=== PATIENT | female | born 1985 | race Hispanic/Latino ===

== ENCOUNTER 2017-08-24 06:40 | Emergency (ER) | payer BC ==
[~2017-08-24] VITALS: Ht 157.5 cm; Wt 76.2 kg
[~2017-08-24 06:40] MED LIST: DOC-Q-LACE100 MG PO; IBUPROFEN600 MG PO; TYLENOL WITH C1 EACH PO
--- OUTSIDE RECORDS SUMMARY | 2017-08-24 06:42 | XMS REPORT | Clinical Summary ---
Author Author [facility] Address Unknown Phone Unavailable Care Team Providers Care Fashion Coordinator Name Role Phone Hortencia Toledo MD PCP Allergies Active Allergy Reactions Severity Noted Date Comments Sulfa (Sulfonamide Itching 11/10/2016 Antibiotics) Current Medications No known medications Active Problems No known active problems Encounters Date Type Specialty Care Team Description 11/22/2016 Telephone Internal Medicine Vandana Meyers MA 11/22/2016 Orders Only Internal Medicine Shelly Toledo MD 11/21/2016 Telephone Internal Medicine Vandana Meyers MA 11/17/2016 Telephone Internal Medicine Shelly Toledo MD 11/10/2016 Office Visit Internal Medicine Shelly Toledo MD Other fatigue (Primary Dx); Weight gain; Screening for hyperlipidemia after 08/23/2016 Immunizations Name Dates Previously Given Next Due Influenza Trivalent 03/12/2016, 03/27/2014 Family History Medical History Relation Name Comments Hyperlipidemia Father Hypertension Father Hypertension Mother Hypothyroidism Mother Relation Name Status Comments Father Alive Mother Alive Social History Tobacco Use Types Packs/Day Years Used Date Never Smoker Smokeless Tobacco: Never Used Alcohol Use Drinks/Week oz/Week Comments No Sex Assigned at Date Recorded Not on file Last Filed Vital Signs Vital Sign Reading Time Taken Blood Pressure 114/76 11/10/2016 1:49 PM CDT Pulse 65 11/10/2016 1:49 PM CDT Temperature 36.8 C (98.2 F) 11/10/2016 1:49 PM CDT Respiratory Rate - - Oxygen Saturation 97% 11/10/2016 1:49 PM CDT Inhaled Oxygen - - Concentration Weight 74.9 kg (165 lb 3.2 oz) 11/10/2016 1:49 PM CDT Height 157.5 cm (5' 2") 11/10/2016 1:49 PM CDT Body Mass Index 30.22 11/10/2016 1:49 PM CDT Plan of Treatment Date Type Specialty Care Team Description 08/30/2017 Office Visit Obstetrics [place] [address] [address] [address] [place] [address] Health Maintenance Due Date Last Done Comments PAP SMEAR 2005 INFLUENZA VACCINE 12/12/2017 03/12/2016, 03/27/2014 Results * CBC with platelet and differential (11/10/2016 2:20 PM) Component Value Ref Range WBC 5.4 3.8 - 10.8 Thousand/uL RBC 4.67 3.80 - 5.10 Million/uL HGB 13.9 11.7 - 15.5 g/dL HCT 42.0 35.0 - 45.0 % MCV 89.9 80.0 - 100.0 fL MCH 29.8 27.0 - 33.0 pg MCHC 33.1 32.0 - 36.0 g/dL RDW 13.1 11.0 - 15.0 % Platelet count 314 140 - 400 Thousand/uL MPV 7.9 7.5 - 12.5 fL Neutrophils, absolute 3,386 1,500 - 7,800 cells/uL Lymphocytes, absolute 1,566 850 - 3,900 cells/uL Monocytes, absolute 313 200 - 950 cells/uL Eosinophils, absolute 113 15 - 500 cells/uL Basophils, absolute 22 0 - 200 cells/uL Neutrophils 62.7 % Lymphocytes 29.0 % Monocytes 5.8 % Eosinophils 2.1 % Basophils + RC 0.4 % Specimen Performing Laboratory [facility] Narrative FASTING:YES * Thyroid stimulating hormone (11/10/2016 2:20 PM) Component Value Ref Range TSH 1.66 mIU/L Comment: Reference Range > or=20 Years 0.40-4.50 Ranges First trimester 0.26-2.66 Second trimester 0.55-2.73 Third trimester 0.43-2.91 Specimen Performing Laboratory [facility] Narrative FASTING:YES * Vitamin B12 level (11/10/2016 2:20 PM) Component Value Ref Range Vitamin B12 871 200 - 1,100 pg/mL Specimen Performing Laboratory [facility] Narrative FASTING:YES * Lipid panel (11/10/2016 2:20 PM) Component Value Ref Range Cholesterol, total 223 (H) 125 - 200 mg/dL HDL cholesterol 41 (L) > OR=46 mg/dL Triglycerides 144 <150 mg/dL LDL cholesterol 153 (H) <130 mg/dL (calc) calculated Comment: Desirable range <100 mg/dL for patients with CHD or diabetes and <70 mg/dL for diabetic patients with known heart disease. Cholesterol/HDL ratio 5.4 (H) < OR=5.0 (calc) Non-HDL cholesterol 182 (H) mg/dL (calc) Comment: Target for non-HDL cholesterol is 30 mg/dL higher than LDL cholesterol target. Specimen Performing Laboratory [facility] Narrative FASTING:YES * Comprehensive metabolic panel (11/10/2016 2:20 PM) Component Value Ref Range Glucose 81 65 - 99 mg/dL Comment: Fasting reference interval BUN, whole blood 13 7 - 25 mg/dL Creatinine 0.75 0.50 - 1.10 mg/dL EGFR Non-Afr. Belizean 105 > OR=60 mL/min/1.73m2 EGFR 122 > OR=60 mL/min/1.73m2 BUN/creatinine ratio NOT APPLICABLE 6 - 22 (calc) Sodium 141 135 - 146 mmol/L Potassium 4.2 3.5 - 5.3 mmol/L Chloride 104 98 - 110 mmol/L CO2 28 20 - 31 mmol/L Calcium 9.1 8.6 - 10.2 mg/dL Protein 7.4 6.1 - 8.1 g/dL Albumin, S 4.2 3.6 - 5.1 g/dL Globulin, total 3.2 1.9 - 3.7 g/dL (calc) Albumin/globulin ratio 1.3 1.0 - 2.5 (calc) Total bilirubin 0.4 0.2 - 1.2 mg/dL Alkaline phosphatase 85 33 - 115 U/L AST 18 10 - 30 U/L ALT 19 6 - 29 U/L Specimen Performing Laboratory [facility] Narrative FASTING:YES after 08/23/2016 Insurance Payer Benefit Subscriber ID Type Phone Address Plan / Group BCBS BCBS xxxxxxxxxxxx PPO CHOICE PPO/LINDA DU PPO Work: [id number] [facility] [place] [id number] Home:
[2017-08-24] MEDS ORDERED: ONDANSETRON HCL 4 MG ORAL DISINTEGRATING TAB PO ONE (07:30)
[2017-08-24] MEDS ORDERED: SODIUM CHLORIDE 0.9% 1000ML 1,000 ML IV STA (07:45)
[2017-08-24 08:08] VITALS: BP 106/63
[2017-08-24] MEDS ORDERED: ZOFRAN ODT4 MG PO (08:20)
== END 2017-08-24 08:32 | disposition home or self-care (01) ==
LOC: FSED 06:40
DX: R50.9 Fever, unspecified (principal); R11.2 Nausea with vomiting, unspecified; R19.7 Diarrhea, unspecified; R10.84 Generalized abdominal pain; K52.9 Noninfective gastroenteritis and colitis, unspecified
CPT/HCPCS: 80053; 81003; 85025; 99283; J7030

== ENCOUNTER 2018-08-14 12:36 | Emergency (ER) | payer BC ==
[~2018-08-14] VITALS: Ht 157.5 cm; Wt 68.5 kg
[~2018-08-14 12:36] MED LIST changes: +ZOFRAN ODT4 MG PO
--- OUTSIDE RECORDS SUMMARY | 2018-08-14 12:39 | XMS REPORT | Clinical Summary ---
Author Author [facility] Address Unknown Phone Unavailable Care Team Providers Care Occupational Therapy Instructor Name Role Phone Shelly Toledo MD PCP Allergies Comments Active Allergy Reactions Severity Noted Date Sulfa (Sulfonamide Itching 11/10/2016 Antibiotics) Medications End Date Status Medication Sig Dispensed Refills Start Date 08/30/2017 Discontinued ondansetron (ZOFRAN) 4 MG 0 tablet 8 Active Problems Problem Noted Date Hammer toe of right foot 03/27/2018 Fracture of proximal phalanx of toe of right foot 03/27/2018 Resolved Problems Problem Noted Date Resolved Date Backache 08/30/2017 08/30/2017 Biliary colic 08/30/2017 08/30/2017 Cholecystitis 08/30/2017 08/30/2017 Disorder of upper respiratory system 08/30/2017 08/30/2017 Eruption due to drug 08/30/2017 08/30/2017 Gallstone 08/30/2017 08/30/2017 Pruritus 08/30/2017 08/30/2017 Encounters Care Team Description Date Type Specialty Merly Lebron MD 03/27/2018 Anesthesia Event Kym Archer DPM ARTHROPLASTY RIGHT 5TH TOE, HAMMERTOE REPAIR 5TH TOE 03/27/2018 Surgery Kym Archer DPM 03/27/2018 Hospital Encounter Vandana Meyers MA 03/26/2018 Telephone Internal Medicine Shelly Toledo MD Pain of toe of right foot; Pre-operative clearance; Mixed hyperlipidemia 03/19/2018 Office Visit Internal Medicine Shavonne Medina MA 09/21/2017 Telephone Obstetrics and Gynecology Vanna Rueda MD Coital urinary incontinence (Primary Dx); Urge incontinence 08/30/2017 Office Visit Obstetrics and Gynecology Shelly Toledo MD Pain of toe of right foot (Primary Dx) 08/24/2017 Office Visit Internal Medicine Shelly Toledo MD Pain of toe of right foot 08/24/2017 Hospital Radiology Encounter after 08/13/2017 Immunizations Name Dates Previously Given Next Due Influenza Trivalent 03/12/2016, 03/27/2014 Family History Medical History Relation Name Comments Hyperlipidemia Father Kai Dinh Hypertension Father Kai Dinh COPD Maternal Rajesh Grandfather Diabetes Maternal Rajesh Grandfather COPD Maternal Ana Grandmother Diabetes Maternal Ana Grandmother Hearing loss Maternal Ana Grandmother Hypertension Mother Gallo Dinh Hypothyroidism Mother Gallo Dinh Stroke Paternal Ba Grandfather Asthma Sister Monisha Dinh Relation Name Status Comments Father Kai Dinh Alive Maternal Grandfather Rajesh Maternal Grandmother Ana Mother Gallo Alive Fabrizio Paternal Grandfather Ba Sister Monisha Dinh Social History Date Tobacco Use Types Packs/Day Years Used Never Smoker Smokeless Tobacco: Never Used Alcohol Use Drinks/Week oz/Week Comments Yes socially Sex Assigned at Date Recorded Not on file Industry Job Start Date Occupation Not on file Not on file Not on file Travel End Travel History Travel Start No recent travel history available. Last Filed Vital Signs Time Taken Vital Sign Reading 03/27/2018 3:10 PM GROUP SALES COORDINATOR Blood Pressure 103/64 03/27/2018 3:10 PM GROUP SALES COORDINATOR Pulse 72 03/27/2018 2:20 PM GROUP SALES COORDINATOR Temperature 36.4 C (97.6 F) 03/27/2018 3:10 PM GROUP SALES COORDINATOR Respiratory Rate 18 03/27/2018 3:10 PM GROUP SALES COORDINATOR Oxygen Saturation 99% - Inhaled Oxygen - Concentration 03/27/2018 10:53 AM GROUP SALES COORDINATOR Weight 68.7 kg (151 lb 6.4 oz) 03/27/2018 10:53 AM GROUP SALES COORDINATOR Height 157.5 cm (5' 2") 03/27/2018 10:53 AM GROUP SALES COORDINATOR Body Mass Index 27.69 Plan of Treatment Health Maintenance Due Date Last Done Comments CERVICAL CANCER SCREENING 03/14/2018 03/14/2015 INFLUENZA VACCINE 12/12/2018 03/12/2016, 03/27/2014 Procedures Comments Procedure Name Priority Date/Time Associated Diagnosis XR TOE 2+ VW RIGHT Routine 03/27/2018 2:10 PM GROUP SALES COORDINATOR OR FL < 1 HOUR Routine 03/27/2018 2:10 PM GROUP SALES COORDINATOR LA AN ELECTIVE Routine 03/27/2018 SUPRAGLOTTIC AIRWAY 1:53 PM GROUP SALES COORDINATOR Procedure Note - Stevie Hodges MD - 03/27/2018 1:53 PM GROUP SALES COORDINATOR ANESTHESIA INTUBATION Date/Time: 03/27/2018 1:40 PM Performed by: Stevie Hodges MD Authorized by: Stevie Hodges MD Location: OR Urgency: Elective Difficult Airway: No Anesthesio logist: Stevie Hodges MD Preoxygena tim with 100% O2: Yes C-spine Precaution s Maintained Throughout : Yes Mask Ventilatio n: Easy mask Final Airway Type: Supraglott ic airway Final LMA: Classic LMA Size: 4 Number of Attempts at Approach: 1 ARTHROPLASTY, TOE, PIP 03/27/2018 M20.41, HAMERTOE JOINT, FOR HAMMERTOE 12:00 PM GROUP SALES COORDINATOR DEFORMITY RIGHT FOOT, FRACTURE MIDDLE PLALANX TOES S92.502 Special Needs MINI C-ARM HGB & HCT I-STAT Routine 03/27/2018 11:10 AM GROUP SALES COORDINATOR HCG QUALITATIVE, URINE Routine 03/27/2018 SCREEN 10:50 AM GROUP SALES COORDINATOR ECG 12-LEAD Routine 03/19/2018 Pre-operative clearance 10:56 AM GROUP SALES COORDINATOR HCG QUALITATIVE, SERUM Routine 03/19/2018 Pre-operative clearance SCREEN 10:48 AM GROUP SALES COORDINATOR LIPID PANEL Routine 03/19/2018 Mixed hyperlipidemia 10:48 AM GROUP SALES COORDINATOR COMPREHENSIVE METABOLIC Routine 03/19/2018 Mixed hyperlipidemia PANEL 10:48 AM GROUP SALES COORDINATOR XR FOOT 3+ VW RIGHT Routine 08/24/2017 Pain of toe of right foot 3:08 PM CDT after 08/13/2017 Results * OR FL < 1 Hour (03/27/2018 2:10 PM GROUP SALES COORDINATOR) Narrative Performed At EXAMINATION:OR FL 1 HOUR HM [facility] C-arm fluoroscopy was requested in OR.FLUORO TIME 0:12 IMPRESSION: Separate operative report will be issued by the physician performing the procedure. [id number] Procedure Note Hm Interface, Radiology Results Incoming - 03/27/2018 3:06 PM GROUP SALES COORDINATOR EXAMINATION: OR FL 1 HOUR C-arm fluoroscopy was requested in OR. FLUORO TIME 0:12 IMPRESSION: Separate operative report will be issued by the physician performing the procedure. [id number] Performing Organization Address [facility] Phone Number [facility] [address] [place] [address] * XR Toe 2+ Vw Right (03/27/2018 2:10 PM GROUP SALES COORDINATOR) Narrative Performed At EXAMINATION:XR TOE 2VW RIGHT [facility] CLINICAL HISTORY:Hammertoe right fifth digit COMPARISON:August 24, 2017 right foot. FINDINGS: Single spot image during the study by Dr. Archer shows changes of a distal osteotomy proximal phalanx right fifth digit IMPRESSION: Intraoperative view right fifth digit Please see operative report for details. Fluoroscopy time 12 seconds 1 exposure [id number] Procedure Note Hm Interface, Radiology Results Incoming - 03/27/2018 3:29 PM GROUP SALES COORDINATOR EXAMINATION: XR TOE 2 VW RIGHT CLINICAL HISTORY: Hammertoe right fifth digit COMPARISON: August 24, 2017 right foot. FINDINGS: Single spot image during the study by Dr. Archer shows changes of a distal osteotomy proximal phalanx right fifth digit IMPRESSION: Intraoperative view right fifth digit Please see operative report for details. Fluoroscopy time 12 seconds 1 exposure [id number] Performing Organization Address [facility] Phone Number [facility] [address] [place] [address] * HGB & HCT I-Stat (03/27/2018 11:10 AM GROUP SALES COORDINATOR) Hematocrit, whole blood 40.0 36.0 - 50.0 % [facility] Hemoglobin, whole blood 13.6 11.0 - 15.0 g/dL [facility] Specimen Plasma specimen Performing Organization Address [facility] Phone Number [address] [place] [address] PATHOLOGY AND GENOMIC MEDICINE [address] * hCG qualitative, urine screen (03/27/2018 10:50 AM GROUP SALES COORDINATOR) hCG qualitative, urine Negative Negative [facility] Comment: [facility] The manufacturers stated sensitivity of HcG test for serum is >/=10 mIU/ml and urine is >/=20mIU/ml. Specimen Urine Performing Organization Address [facility] Phone Number [facility] [address] [place] [address] PATHOLOGY AND GENOMIC MEDICINE [facility] [address] [place] [address] [facility] * ECG 12 lead (03/19/2018 10:56 AM GROUP SALES COORDINATOR) Ventricular rate 67 [facility] Atrial rate 67 [facility] LA interval 130 [facility] QRSD interval 80 [facility] QT interval 402 [facility] QTC interval 424 [facility] P axis 1 80 [facility] QRS axis 1 89 [facility] T wave axis 61 [facility] EKG impression Normal sinus rhythm with sinus [facility] arrhythmia-ST & T wave abnormality, consider anterior ischemia-Abnormal ECG-No previous ECGs available- Narrative Performed At Performing Organization Address [facility] Phone Number [facility] [address] [place] [address] * hCG qualitative, serum screen (03/19/2018 10:48 AM GROUP SALES COORDINATOR) hCG,beta subunit,qual, Negative Negative <6 mIU/mL [facility] serum Specimen Blood Narrative Performed At Performed at: [id number] Silk Snapper: Godwin Norman MD, Phone:[phone] Performing Organization Address [facility] Phone Number [facility] * Lipid panel (03/19/2018 10:48 AM GROUP SALES COORDINATOR) Cholesterol 170 100 - 199 mg/dL [facility] Triglycerides 103 0 - 149 mg/dL [facility] HDL cholesterol 45 >39 mg/dL [facility] VLDL cholesterol evita 21 5 - 40 mg/dL [facility] LDL cholesterol 104 (H) 0 - 99 mg/dL [facility] calculated Non-HDL cholesterol 125 0 - 129 mg/dL [facility] Specimen Blood Narrative Performed At Performed at:01 - [id number] Silk Snapper: Godwin Norman MD, Phone:[phone] Performing Organization Address [facility] Phone Number [facility] * Comprehensive metabolic panel (03/19/2018 10:48 AM GROUP SALES COORDINATOR) Glucose 88 65 - 99 mg/dL [facility] BUN, whole blood 8 6 - 20 mg/dL [facility] Creatinine 0.63 0.57 - 1.00 mg/dL [facility] EGFR Non-Afr. Ivorian 118 >59 mL/min/1.73 [facility] EGFR 136 >59 mL/min/1.73 [facility] BUN/creatinine ratio 13 9 - 23 [facility] Sodium 143 134 - 144 mmol/L [facility] Potassium 4.4 3.5 - 5.2 mmol/L [facility] Chloride 104 96 - 106 mmol/L [facility] CO2 23 20 - 29 mmol/L [facility] Calcium 8.8 8.7 - 10.2 mg/dL [facility] Protein 6.8 6.0 - 8.5 g/dL [facility] Albumin, S 4.1 3.5 - 5.5 g/dL [facility] Globulin, total 2.7 1.5 - 4.5 g/dL [facility] Albumin/globulin ratio 1.5 1.2 - 2.2 [facility] Total bilirubin 0.3 0.0 - 1.2 mg/dL [facility] Alkaline phosphatase 75 39 - 117 IU/L [facility] AST 22 0 - 40 IU/L [facility] ALT 22 0 - 32 IU/L [facility] Specimen Blood Narrative Performed At Performed at:01 - [facility] [address] [place], [id number] Silk Snapper: Godwin Norman MD, Phone:[phone] Performing Organization Address City/State/Zipcode Phone Number [facility] * XR Foot 3+ Vw Right (08/24/2017 3:08 PM CDT) Narrative Performed At EXAMINATION:XR FOOT 3VW RIGHT [facility] CLINICAL HISTORY:M79.674 Pain in right toe(s), right 5th toe pain and metatarsal pain. COMPARISON:None available at this time. IMPRESSION: 1. No fracture, malalignment, or osseous destructive lesion of the right foot. 2. Joint spaces are maintained. No significant degenerative changes. 3. Soft tissues are unremarkable. [facility]-[id number] Procedure Note Hm Interface, Radiology Results Incoming - 08/24/2017 3:25 PM CDT EXAMINATION: XR FOOT 3 VW RIGHT CLINICAL HISTORY: M79.674 Pain in right toe(s), right 5th toe pain and metatarsal pain. COMPARISON: None available at this time. IMPRESSION: 1. No fracture, malalignment, or osseous destructive lesion of the right foot. 2. Joint spaces are maintained. No significant degenerative changes. 3. Soft tissues are unremarkable. [facility]-[id number] Performing Organization Address City/State/Zipcode Phone Number [facility] [address] [place] [address] after 08/13/2017 Insurance Payer Benefit Subscriber ID Type Phone Address Plan / Group BCBS BCBS xxxxxxxxxxxx PPO CHOICE PPO/LINDA DU PPO Advance Directives Patient has advance care planning documents on file. For more information, jayesh larose contact: Lewis Bahena [address] [place] [address]
[2018-08-14] MEDS ORDERED: ONDANSETRON HCL 4 MG ORAL DISINTEGRATING TAB PO ONE (13:00)
== END 2018-08-14 13:50 | disposition home or self-care (01) ==
LOC: FSED 12:36
DX: R11.2 Nausea with vomiting, unspecified (principal); R10.9 Unspecified abdominal pain; R19.7 Diarrhea, unspecified; A04.9 Bacterial intestinal infection, unspecified
CPT/HCPCS: 81025; 99283; Q0162